=== PATIENT | female | born 1955 | race African-American/Black ===

== ENCOUNTER 2019-08-22 17:41 | Emergency (ER) | payer MEDICAID, OTHER ==
[~2019-08-22] VITALS: Ht 170.2 cm; Wt 104.3 kg
[2019-08-22] MEDS ORDERED: BACLOFEN 10 MG TAB PO ONE (22:45)
[2019-08-22] MEDS ORDERED: HYDROcodone-ACET 10/325MG TAB PO ONE (22:45)
[2019-08-22 23:20] VITALS: BP 134/86
== END 2019-08-22 23:23 | disposition home or self-care (01) ==
LOC: ER 17:52
DX: M62.830 Muscle spasm of back (principal); V89.2XXA Person injured in unspecified motor-vehicle accident, traffic, initial encounter; Y93.89 Activity, other specified; Y92.410 Unspecified street and highway as the place of occurrence of the external cause; Y99.8 Other external cause status
CPT/HCPCS: 72040; 72100

== ENCOUNTER 2021-06-28 22:40 | Emergency (ER) | payer MEDICAID ==
[~2021-06-28] VITALS: Ht 170.2 cm; Wt 108.9 kg
[2021-06-28] MEDS ORDERED: SODIUM CHLORIDE 0.9% 500 ML IV ONE (23:30)
[2021-06-28 23:56] LABS: Basophils # (auto) 0.2 10 ^3/uL (0-0.2); Basophils % (auto) 1.1 % (0.0-2.0); Eosinophils # (auto) 0.1 10 ^3/uL (0-0.8); Eosinophils % (auto) 0.9 % (0.0-7.0); Hemoglobin 14.6 g/dL (12.2-16.2); Lymphocytes # (auto) 2.6 10 ^3/uL (0.4-5.4); Lymphocytes % (auto) 17.3 % (10.0-50.0); Mean Corpuscular Hemoglobin 27.3 pg (28.0-32.0); Mean Corpuscular Hgb Conc. 33.1 g/dL (32.0-36.0); Mean Corpuscular Volume 82.7 fL (80.0-100.0); Monocytes # (auto) 0.9 10 ^3/uL (0-1.3); Monocytes % (auto) 5.9 % (0.0-12.0); Neutrophils % (auto) 74.8 % (37.0-80.0); Nucleated Red Blood Cells % 0.1 %; Red Blood Cells 5.33 10^6/uL (4.0-5.20); Red Cell Distribution Width 14.7 % (11.8-14.3); White Blood Cell 14.8 10^3/uL (4.4-10.8)
[2021-06-29 00:07] LABS: Urine Bacteria FEW /hpf (None Seen); Urine Blood Negative /uL (Negative); Urine Hyaline Cast FEW /lpf (0 - 2); Urine Mucus FEW (None Seen); Urine Specific Gravity 1.028 (1.001-1.035); Urine WBC 3 /hpf (0 - 5)
[2021-06-29 00:14] LABS: Albumin 3.7 g/dL (3.4-5.0); BUN/Creatinine Ratio 19.4; Calcium 10.4 mg/dL (8.5-10.1); Potassium 3.8 mmol/L (3.5-5.1)
[2021-06-29 00:17] LABS: Bilirubin, Total 0.7 mg/dL (0.2-1.0); Total Protein 7.9 g/dL (6.4-8.2)
[2021-06-29] MEDS ORDERED: IOHEXOL 300 MG/ML 100ML BOTTLE IJ ONE (02:34)
[2021-06-29 03:00] VITALS: BP 147/93
[2021-06-29] MEDS ORDERED: ONDANSETRON HCL 4 MG/2 ML VIAL IV ONE (04:00)
== END 2021-06-29 04:22 | disposition home or self-care (01) ==
LOC: EDBD 22:40 → ER 22:40
DX: R10.84 Generalized abdominal pain (principal); M54.5 Low back pain; E11.9 Type 2 diabetes mellitus without complications; Z79.4 Long term (current) use of insulin
CPT/HCPCS: 36415; 74177; 80053; 81001; 82962; 83605; 85025; 96361; 96374; 99285; J2405; J7040; Q9967

== ENCOUNTER 2022-07-13 13:48 | Emergency (ER) | payer MEDICAID ==
[~2022-07-13] VITALS: Ht 170.2 cm; Wt 104.5 kg
[2022-07-13 14:40] LABS: Eosinophils # (auto) 0.2 10 ^3/uL (0-0.8); Eosinophils % (auto) 1.4 % (0.0-7.0); Lymphocytes # (auto) 2.9 10 ^3/uL (0.4-5.4); Mean Corpuscular Hgb Conc. 31.3 g/dL (32.0-36.0)
[2022-07-13 14:42] LABS: Basophils # (auto) 0.3 10 ^3/uL (0-0.2); Basophils % (auto) 2.6 % (0.0-2.0); Hematocrit 44.6 % (36.0-46.0); Lymphocytes % (auto) 24.1 % (10.0-50.0); Mean Corpuscular Hemoglobin 25.1 pg (28.0-32.0); Monocytes # (auto) 0.7 10 ^3/uL (0-1.3); Monocytes % (auto) 6.2 % (0.0-12.0); Neutrophils # (auto) 7.9 10 ^3/uL (1.6-8.6); Neutrophils % (auto) 65.7 % (37.0-80.0); Nucleated Red Blood Cells % 0.2 %; Red Blood Cells 5.57 10^6/uL (4.0-5.20); Red Cell Distribution Width 15.4 % (11.8-14.3); White Blood Cell 12.1 10^3/uL (4.4-10.8)
[2022-07-13 14:54] LABS: Albumin 3.8 g/dL (3.4-5.0); Calcium 9.9 mg/dL (8.5-10.1)
[2022-07-13 14:57] LABS: BUN/Creatinine Ratio 21.1; Bilirubin, Total 0.7 mg/dL (0.2-1.0); Total Protein 7.5 g/dL (6.4-8.2)
[2022-07-13 17:57] LABS: Urine Bacteria NONE SEEN /hpf (None Seen); Urine Blood 1+ /uL (Negative); Urine Mucus FEW (None Seen); Urine Specific Gravity 1.029 (1.001-1.035); Urine WBC 6 /hpf (0 - 5)
[2022-07-13] MEDS ORDERED: IOHEXOL 350 MG/ML 100ML IJ ONE (18:51)
[2022-07-13] MEDS ORDERED: FAMO-12 PO (21:09)
[2022-07-13] MEDS ORDERED: ALUM & MAG HYDROX-SIMETH LIQ(MAALOX) 30 ML PO ONE (21:15)
[2022-07-13] MEDS ORDERED: DONNATAL 5ml ORAL Elix (BELLADONNA ALK-PHENOBARB) PO ONE (21:15)
[2022-07-13] MEDS ORDERED: BACL5TAB2 PO (21:34)
[2022-07-13] MEDS ORDERED: HYDROcodone-ACET 5/325MG TAB PO ONE (21:45)
[2022-07-13] MEDS ORDERED: BACLOFEN 10 MG TAB PO ONE (21:45)
[2022-07-13 22:08] VITALS: BP 157/67
== END 2022-07-13 22:14 | disposition home or self-care (01) ==
LOC: ER 13:48
DX: R10.84 Generalized abdominal pain (principal); E11.9 Type 2 diabetes mellitus without complications
CPT/HCPCS: 36415; 71260; 74177; 80053; 81001; 83605; 83690; 84484; 85025; 93005; 99285; Q9967

== ENCOUNTER 2023-08-11 11:28 | Inpatient (IN) | payer OTHER, MEDICAID ==
[~2023-08-11] VITALS: Ht 170.2 cm; Wt 101.4 kg
[~2023-08-11 11:28] MED LIST: BACL5TAB2 PO; FAMO-12 PO
[2023-08-11 13:05] LABS: Eosinophils # (auto) 0.1 10 ^3/uL (0-0.8); Lymphocytes # (auto) 1.4 10 ^3/uL (0.4-5.4); Monocytes # (auto) 1.3 10 ^3/uL (0-1.3); Neutrophils # (auto) 6.9 10 ^3/uL (1.6-8.6); Nucleated Red Blood Cells % 0.2 %
[2023-08-11 13:07] LABS: Basophils # (auto) 0.1 10 ^3/uL (0-0.2); Basophils % (auto) 0.7 % (0.0-2.0); Eosinophils % (auto) 0.8 % (0.0-7.0); Hematocrit 46.6 % (36.0-46.0); Hemoglobin 15.1 g/dL (12.2-16.2); Mean Corpuscular Hemoglobin 24.4 pg (28.0-32.0); Mean Corpuscular Hgb Conc. 32.4 g/dL (32.0-36.0); Mean Corpuscular Volume 75.2 fL (80.0-100.0); Monocytes % (auto) 13.4 % (0.0-12.0); Neutrophils % (auto) 71.1 % (37.0-80.0); Red Cell Distribution Width 16.7 % (11.8-14.3); White Blood Cell 9.8 10^3/uL (4.4-10.8)
[2023-08-11 13:39] LABS: Hypochromia Slight; Platelet Estimate Adequate
[2023-08-11 13:40] LABS: Giant Platelets Few
[2023-08-11 14:04] LABS: Alanine Aminotransferase 38 U/L (7-40); Albumin 4.8 g/dL (3.2-4.8); Alkaline Phosphatase 119 U/L (46-116); Anion Gap 8 (5-15); Aspartate Aminotransferase 23 U/L (13-40); BUN/Creatinine Ratio 13.3 (10.0-20.0); Blood Urea Nitrogen 18 mg/dL (9-23); Calcium 10.7 mg/dL (8.7-10.4); Carbon Dioxide 25 mmol/L (20-30); Chloride 106 mmol/L (98-107); Glucose 140 mg/dL (74-106); Lipase 68 U/L (12-53); Sodium 139 mmol/L (136-145)
[2023-08-11 14:05] LABS: Bilirubin, Total 0.7 mg/dL (0.2-1.0); Total Protein 7.9 g/dL (5.7-8.2)
[2023-08-11] MEDS ORDERED: SODIUM CHLORIDE 0.9% 1,000 ML IV ONE (14:30)
[2023-08-11] MEDS ORDERED: PIPERACILLIN-TAZOB 3.375GM 100 ML IV ONE (14:30)
[2023-08-11 16:15] VITALS: PULSE 65; RESP 23; O2SAT 93
[2023-08-11 18:34] LABS: Urine Bacteria FEW /hpf (None Seen); Urine Blood Negative /uL (Negative); Urine Clarity HAZY (Clear); Urine Color Yellow (Yellow); Urine Hyaline Cast MANY /lpf (0 - 2); Urine Mucus FEW (None Seen); Urine Protein, UAD 2+ (Negative); Urine Specific Gravity 1.025 (1.001-1.035); Urine Urobilinogen Normal (Negative); Urine WBC 4 /hpf (0 - 5); Urine pH 5.5 (5.0-8.0)
[2023-08-11] MEDS ORDERED: MORPHINE SULFATE INJ 2 MG/ml SYRG IV PRN (19:00)
[2023-08-11] MEDS ORDERED: ONDANSETRON HCL 4 MG/2 ML VIAL IV PRN (19:00)
[2023-08-11] MEDS ORDERED: DOCUSATE SOD 100 MG CAP PO PRN (19:00)
[2023-08-11 19:45] VITALS: PULSE 67; RESP 12; O2SAT 95
[2023-08-11] MEDS: SODIUM CHLORIDE 0.9% 1,000 ML IV SCH (22:39)
[2023-08-11] MEDS: VANCOMYCIN HCL 125MG/5ML ORAL SOL PO SCH (22:39)
[2023-08-11 23:16] LABS: Creatinine, Urine 151.86 mg/dL (30.0-125.0)
[2023-08-12] VITALS (8 sets, daily range): BP systolic 94–114; BP diastolic 43–58; PULSE 59–83; RESP 16–22; TEMP 98–98.2; O2SAT 94–100
[2023-08-12] MEDS: SODIUM CHLORIDE 0.9% 1,000 ML IV SCH ×3 (03:35→20:00)
[2023-08-12 06:15] LABS: Basophils # (auto) 0.1 10 ^3/uL (0-0.2); Hemoglobin 12.6 g/dL (12.2-16.2); Lymphocytes # (auto) 1.8 10 ^3/uL (0.4-5.4); Mean Corpuscular Volume 75.2 fL (80.0-100.0)
[2023-08-12 06:19] LABS: Basophils % (auto) 0.7 % (0.0-2.0); Eosinophils # (auto) 0.1 10 ^3/uL (0-0.8); Eosinophils % (auto) 1.5 % (0.0-7.0); Hematocrit 39.3 % (36.0-46.0); Lymphocytes % (auto) 24.1 % (10.0-50.0); Mean Corpuscular Hemoglobin 24.1 pg (28.0-32.0); Mean Corpuscular Hgb Conc. 32.1 g/dL (32.0-36.0); Monocytes # (auto) 1.4 10 ^3/uL (0-1.3); Monocytes % (auto) 17.8 % (0.0-12.0); Neutrophils # (auto) 4.3 10 ^3/uL (1.6-8.6); Neutrophils % (auto) 55.9 % (37.0-80.0); Nucleated Red Blood Cells % 0.1 %; Red Blood Cells 5.22 10^6/uL (4.0-5.20); Red Cell Distribution Width 16.8 % (11.8-14.3); White Blood Cell 7.6 10^3/uL (4.4-10.8)
[2023-08-12 06:25] LABS: Alanine Aminotransferase 30 U/L (7-40); Albumin 3.7 g/dL (3.2-4.8); Alkaline Phosphatase 91 U/L (46-116); Anion Gap 7 (5-15); Aspartate Aminotransferase 19 U/L (13-40); BUN/Creatinine Ratio 18.4 (10.0-20.0); Blood Urea Nitrogen 16 mg/dL (9-23); Calcium 9.3 mg/dL (8.7-10.4); Carbon Dioxide 23 mmol/L (20-30); Chloride 110 mmol/L (98-107); Glucose 114 mg/dL (74-106); Lipase 61 U/L (12-53); Potassium 3.6 mmol/L (3.5-5.1); Sodium 140 mmol/L (136-145)
[2023-08-12 06:26] LABS: Bilirubin, Total 0.6 mg/dL (0.2-1.0); Total Protein 6.2 g/dL (5.7-8.2)
[2023-08-12] MEDS: VANCOMYCIN HCL 125MG/5ML ORAL SOL PO SCH ×4 (07:44→22:00)
[2023-08-12] MEDS: PANTOPRAZOLE 40 MG/10 ML VIAL INJ IV SCH (10:40)
[2023-08-12] MEDS: NICOTINE 21MG/24 HR TOPICAL PATCH TD SCH (10:40)
[2023-08-12] MEDS ORDERED: cefTRIAXone 1GM/50ML D5W 50 ML IV ONE (13:15)
[2023-08-12] MEDS ORDERED: DEXTROSE (50%) 50ML SYRG IV PRN (13:45)
[2023-08-12] MEDS: InsuLIN REG 1unit/0.01ml Soln (100units/ml) SC SCH ×2 (17:00→20:00)
[2023-08-12] MEDS: ACCU-CHEK COMFORT CURVE STRIP VI SCH ×2 (17:27→22:32)
[2023-08-13] MEDS: SODIUM CHLORIDE 0.9% 1,000 ML IV SCH ×3 (04:20→20:41)
[2023-08-13] MEDS: ACCU-CHEK COMFORT CURVE STRIP VI SCH ×6 (04:26→20:36)
[2023-08-13] MEDS: InsuLIN REG 1unit/0.01ml Soln (100units/ml) SC SCH ×6 (04:32→20:00)
[2023-08-13 05:00] VITALS: BP 109/49; PULSE 75; RESP 17; TEMP 98.2; O2SAT 96
[2023-08-13] MEDS: VANCOMYCIN HCL 125MG/5ML ORAL SOL PO SCH ×4 (06:24→21:30)
[2023-08-13 08:00] VITALS: PULSE 64; RESP 20; O2SAT 98
[2023-08-13] MEDS: NICOTINE 21MG/24 HR TOPICAL PATCH TD SCH (08:11)
[2023-08-13] MEDS: PANTOPRAZOLE 40 MG/10 ML VIAL INJ IV SCH (08:11)
[2023-08-13] MEDS: cefTRIAXone 1GM/50ML D5W 50 ML IV SCH (08:11)
[2023-08-13 08:30] VITALS: BP 116/65; PULSE 64; RESP 20; TEMP 97.8; O2SAT 98
[2023-08-13] MEDS: metroNIDAZOLE 500MG/100ML 100 ML IV SCH ×2 (14:03→21:29)
[2023-08-13 17:17] VITALS: BP 134/68; PULSE 75; RESP 20; TEMP 98.4; O2SAT 97
[2023-08-13 21:54] VITALS: BP 146/67; PULSE 83; RESP 17; TEMP 99; O2SAT 99
[2023-08-14] MEDS: ACCU-CHEK COMFORT CURVE STRIP VI SCH ×4 (03:08→11:48)
[2023-08-14] MEDS: InsuLIN REG 1unit/0.01ml Soln (100units/ml) SC SCH ×4 (03:09→11:51)
[2023-08-14 05:00] VITALS: BP 124/64; PULSE 67; RESP 18; TEMP 98.9; O2SAT 97
[2023-08-14] MEDS: SODIUM CHLORIDE 0.9% 1,000 ML IV SCH ×2 (05:20→08:32)
[2023-08-14] MEDS: metroNIDAZOLE 500MG/100ML 100 ML IV SCH ×2 (05:37→14:58)
[2023-08-14] MEDS: VANCOMYCIN HCL 125MG/5ML ORAL SOL PO SCH ×2 (05:39→11:44)
[2023-08-14] MEDS ORDERED: ATEN25TA PO (05:52)
[2023-08-14] MEDS ORDERED: CHOL20003 PO (05:52)
[2023-08-14] MEDS ORDERED: ALEN70TA74 PO (05:52)
[2023-08-14] MEDS ORDERED: ASPI-325 PO (05:52)
[2023-08-14] MEDS ORDERED: PANT40T PO (05:52)
[2023-08-14] MEDS ORDERED: INS7030I SC (05:52)
[2023-08-14] MEDS ORDERED: GLIP10TA21 PO (05:52)
[2023-08-14] MEDS ORDERED: GAB100C PO (05:52)
[2023-08-14] MEDS ORDERED: CYAN100042 PO (05:52)
[2023-08-14] MEDS ORDERED: ATOR40TA52 PO (05:52)
[2023-08-14 08:00] VITALS: RESP 16; O2SAT 95
[2023-08-14] MEDS: PANTOPRAZOLE 40 MG/10 ML VIAL INJ IV SCH (08:21)
[2023-08-14] MEDS: NICOTINE 21MG/24 HR TOPICAL PATCH TD SCH (08:21)
[2023-08-14] MEDS: cefTRIAXone 1GM/50ML D5W 50 ML IV SCH (08:22)
[2023-08-14 08:30] VITALS: BP 132/69; PULSE 54; RESP 16; TEMP 98; O2SAT 95
[2023-08-14] MEDS ORDERED: LEVO500T91 PO (11:07)
[2023-08-14] MEDS ORDERED: MET500T PO (11:07)
[2023-08-14] MEDS ORDERED: NIC21P TOP (11:24)
[2023-08-14 12:30] VITALS: BP 128/81; PULSE 71; RESP 20; TEMP 97.2; O2SAT 95
[2023-08-14 14:28] VITALS: BP 128/81; PULSE 71; RESP 20; TEMP 97.7; O2SAT 95
== END 2023-08-14 14:57 | disposition home or self-care (01) | DRG 391 ==
LOC: ER 11:28 → TELE 19:02 → EAST 08-12 01:55
PROVIDERS: ADMIT Nurse Practitioner Family; ATTEND Family Medicine
DX: K57.30 Diverticulosis of large intestine without perforation or abscess without bleeding (principal); K85.90 Acute pancreatitis without necrosis or infection, unspecified; N39.0 Urinary tract infection, site not specified; N17.9 Acute kidney failure, unspecified; E86.0 Dehydration; I10 Essential (primary) hypertension; K43.9 Ventral hernia without obstruction or gangrene; E78.5 Hyperlipidemia, unspecified; Z82.0 Family history of epilepsy and other diseases of the nervous system; Z87.891 Personal history of nicotine dependence; Z90.711 Acquired absence of uterus with remaining cervical stump; E11.65 Type 2 diabetes mellitus with hyperglycemia
CPT/HCPCS: 36415; 74176; 80053; 81001; 82570; 82962; 83605; 83690; 84300; 85025; 85048; 87040; 87045; 87077; 87086; 87186; 87427; 87493; 93005; 96365; 96367; C9113; G0378; J0696; J1815; J2543; J3490

== ENCOUNTER 2025-02-25 04:46 | Emergency (ER) | payer OTHER, MEDICAID ==
[~2025-02-25] VITALS: Ht 170.2 cm; Wt 103.2 kg
[~2025-02-25 04:46] MED LIST changes: +ALEN70TA74 PO; +ASPI-325 PO; +ATEN25TA PO; +ATOR40TA52 PO; +CHOL20003 PO; +CYAN100042 PO; +GAB100C PO; +GLIP10TA21 PO; +INS7030I SC; +LEVO500T91 PO; +MET500T PO; +NIC21P TOP; +PANT40T PO
--- NOTE | 2025-02-25 05:26 | ED.PDOC ---
Back pain HPI HPI Comments C/C: MID TO LOWER LEFT SIDE BACK PAIN FOR THE PAST 3 DAYS. STATES THAT 3 DAYS AGO SHE WAS PUSHING A HEAVY FREEZER. ALL VSS. PATIENT DENIES NUMBNESS, WEAKNESS, LOSS OF BOWEL OR BLADDER CONTROL, OR SADDLE ANESTHESIA. Chief Complaint: Back Pain Time Seen by MD: 05:00 Primary Care Provider: JOSE Reviewed Notes: Nurses Notes, Medications, Allergies Allergies: Coded Allergies: NO KNOWN ALLERGIES (Unverified , 08/22/19) Home Meds Active Scripts Nicotine (Nicoderm 21MG/24HR) 1 Patch Ph, 1 PATCH TOP DAILY, #28 PATCH 1 Refill Prov:JENNIE LLANOS MD 08/14/23 Metronidazole (Metronidazole) 500 Mg Tab, 500 MG PO TID, #21 TAB Prov:JENNIE LLANOS MD 08/14/23 Levofloxacin Hemihydrate (LEVAQUIN 500 MG) 500 Mg Tab, 1 TAB PO DAILY, #7 TAB Prov:JENNIE LLANOS MD 08/14/23 Baclofen (Baclofen) 5 Mg Tab, 5 MG PO QHSP PRN for 15 Days, #15 TAB Prov:LATASHA FISCHER MD 07/13/22 Famotidine (Famotidine) 20 Mg Tab, 20 MG PO BID for 30 Days, #30 TAB Prov:LATASHA FISCHER MD 07/13/22 Reported Medications Insulin Isophane & Reg (Human) (Humulin 70/30 (70-30) 100 Unit/ml) 1 Units/0.01 Ml Inj, 26 UNITS SC BID 08/14/23 Alendronate Sodium (Alendronate Sodium) 70 Mg Tab, 1 TAB PO QWEEKLY 08/14/23 Cyanocobalamin (Vitamin B-12) Unknown Strength Tab, PO DAILY 08/14/23 Atenolol (Atenolol) 25 Mg Tab, 1 TAB PO DAILY 08/14/23 Aspirin (Aspirin Low Dose) 81 Mg Tab, 1 TAB PO DAILY 08/14/23 Pantoprazole Sodium Sesquihydr (Pantoprazole Sodium) 40 Mg Tab, 1 TAB PO DAILY 08/14/23 Gabapentin (Gabapentin) 100 Mg Cap, 1 CAP PO DAILY 08/14/23 Glipizide (Glipizide Er) 10 Mg Tab, 1 TAB PO DAILY 08/14/23 Cholecalciferol (Vitamin D-3 Super Strengt) Unknown Strength Tab, PO DAILY 08/14/23 Atorvastatin Calcium (ATORVASTATIN CALCIUM) 40 Mg Tab, 1 TAB PO DAILY 08/14/23 Information Source: Patient, Relative (Child) Mode of Arrival: Wheelchair Past Medical History PAST MEDICAL HISTORY: DM Surgical History: Denies all surgeries 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 History Family History Family History: Reviewed,noncontributory to illness, No family hx of Cancer, No family hx of DM, No family hx of Heart anish, No family hx of HTN, No family hx ofKidney anish, No family hx of Liver anish, No family hx of Lung anish, No family hx of Stroke Social History Smoker: Non-Smoker Alcohol: Denies ETOH Use Drugs: Denies Drug Use Lives In: Home Constitutional: denies: chills, diaphoresis, fatigue, fever, malaise, sweats, weakness, others EENTM: denies: blurred vision, double vision, ear bleeding, ear discharge, ear drainage, ear pain, ear ringing, eye pain, eye redness, hearing loss, mouth pain, mouth swelling, nasal discharge, nose bleeding, nose congestion, nose pain, photophobia, tearing, throat pain, throat swelling, voice changes, others Respiratory: denies: cough, hemoptysis, orthopnea, SOB at rest, shortness of breath, SOB with excertion, stridor, wheezing, others Cardiovascular: denies: chest pain, dizzy spells, diaphoresis, Dyspnea on exertion, edema, irregular heart beat, left arm pain, lightheadedness, palpitations, PND, syncope, others Gastrointestinal: denies: abdomen distended, abdominal pain, blood streaked bowels, constipated, diarrhea, dysphagia, difficulty swallowing, hematemesis, melena, nausea, poor appetite, poor fluid intake, rectal bleeding, rectal pain, vomiting, others Genitourinary: denies: abnormal vagina bleeding, burning, dyspareunia, dysuria, flank pain, frequency, hematuria, incontinence, pain, , vagina discharge, urgency, others Neurological: denies: dizziness, fainting, headache, left sided numbness, left sided weakness, numbness, paresthesia, pre-existing deficit, right sided numbness, right sided weakness, seizure, speech problems, tingling, tremors, weakness, others Musculoskeletal: reports: back pain; denies: gout, joint pain, joint swelling, muscle pain, muscle stiffness, neck pain, others Integumetry: denies: bruises, change in color, change in hair/nails, dryness, laceration, lesions, lumps, rash, wounds, others Allergic/Immunocompromised: denies: Difficulty Healing, Frequent Infections, Hives, Itching, others Hematologic/Lymphatic: denies: anemia, blood clots, easy bleeding, easy bruising, swollen glands, others Endocrine: denies: excessive hunger, excessive sweating, excessive thirst, excessive urination, flushing, intolerance to cold, intolerance to heat, unexplained weight gain, unexplained weight loss, others Psychiatric: denies: anxiety, bipolar disorder, depression, hopeless, panic disorder, schizophrenia, sleepless, suicidal, others Physical Exam General Appearance: No Apparent Distress, Normal HEENT: Pharynx Normal Neck: Full Range of Motion, Non-Tender Respiratory: Lungs Clear, No Respiratory Distress, Normal Breath Sounds Cardiovascular: No Edema, No JVD, No Murmur, No Gallop, Normal Peripheral Pulses, Regular Rate/Rhythm Breast Exam: Deferred Gastrointestinal: No Organomegaly, Non Tender, No Pulsatile Mass, Normal Bowel Sounds, Soft Genitalia: Deferred Pelvic: Deferred Rectal: Deferred Extremities: Normal capillary refill, Normal inspection, Normal range of motion, Non-tender, No pedal edema Musculoskeletal : Location: Left Extremity Location: Back (MODERATE TENDERNESS ON PALPATION OVER T 8 THROUGH L 3 PARASPINAL MUSCLES LEFT SIDE GREATER THAN RIGHT NO NOTED CREPITUS OR STEP- OFFS ALONG THORACIC AND LUMBAR SPINE STRENGTH SENSORY AND MOTION INTACT NEGATIVE STRAIGHT LEG RAISE BILATERAL POSITIVE PEDAL PULSES) Apperance: Normal Neurologic: Alert, 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 Was a procedure done?: No Back Pain Differential Dx Differential Diagnosis: Fracture, Musculoskeletal Pain, Strain X-Ray, Labs, Meds, VS Vital Signs Date Time Temp Pulse Resp B/P (MAP) Pulse Ox O2 Delivery O2 Flow Rate FiO2 02/25/25 05:11 98.4 68 20 151/78 (102) 96 98.4 X-Ray, Labs, Meds, VS Comment Imaging: Thoracic and lumbar spine CT showed no acute osseous lesions, fractures, subluxations does show spondylo lordosis chronic in nature. Medications: Decadron 10 mg IM [place] 5 mg p.o. Patient reports improvement in pain requesting discharge at this time with her daughter. Script muscle relaxer for HS. Take medications as prescribed side effects discussed. Advised to follow up with her PCP in 1-2 days as necessary consider further imaging such as MRI if symptoms persist. ER return precautions given patient indicates understanding agrees with discharge plan of care Time of 1ST Reevaluation: 05:25 Reevaluation 1ST: Unchanged Patient Education/Counseling: Diagnosis, Treatment, Prognosis, Need For Follow Up Family Education/Counseling: Diagnosis, Treatment, Prognosis, Need For Follow Up Departure 1 Departure Time of Disposition: 06:13 Impression: Primary Impression: Musculoskeletal pain Additional Impressions: Lumbar sprain Qualified Codes: S33.5XXA - Sprain of ligaments of lumbar spine, initial encounter Strain of muscle and tendon of back wall of thorax, initial encounter Disposition: HOME / SELF CARE / HOMELESS Condition: Stable e-Prescriptions Methocarbamol (Methocarbamol) 500 Mg Tab 500 MG PO HS PRN for 5 Days, #5 TAB Prov: RODY LEE 02/25/25 Discharged With: Relative Critical Care Note Critical Care Time?: No Stability Stability form required: RODY Gaona Feb 25, 2025 05:26
--- NOTE | 2025-02-25 05:58 | DVH ---
CLINICAL INDICATION: 69 years old, Female; pain. TECHNIQUE: CT of the thoracic spine was performed without intravenous contrast. Sagittal and coronal reformatted images are provided. All CT scans at this medical facility are performed using dose modu lation techniques as appropriate to a performed exam including the following: Automated exposure cont rol was utilized; adjustment of the MA and/or KV according to patient size; and use of iterative saleem nstruction technique. COMPARISON: None CT Dose: CTDI volume is 38.2 mGy. Dose-length product is 1432.8 mGy*cm FINDINGS: The alignment and curvature of the thoracic spine are preserved. The vertebral bodies are normal in h eight. Multilevel intervertebral disc space narrowing in the midthoracic spine. There is no evidence of spinal canal or neural foraminal stenosis. The prevertebral soft tissues are unremarkable. Paraspinal muscles are also within normal limits. Large hiatal hernia. Emphysema in the lungs. Left lower lobe atelectasis. IMPRESSION: 1. No acute fracture or malalignment in the thoracic spine. 2. Multilevel degenerative changes. 3. Hiatal hernia.
--- NOTE | 2025-02-25 06:04 | DVH ---
CLINICAL INDICATION: 69 years old, Female; radiculopathy LEFT side. TECHNIQUE: CT of the lumbar spine was performed without intravenous contrast. Sagittal and coronal re formatted images are provided. All CT scans at this medical facility are performed using dose modula tion techniques as appropriate to a performed exam including the following: Automated exposure contro l was utilized; adjustment of the MA and/or KV according to patient size; and use of iterative recons truction technique. COMPARISON: None CT Dose: CTDI volume is 38.2 mGy. Dose-length product is 1432.8 mGy*cm FINDINGS: The alignment and curvature of the lumbar spine are preserved. The vertebral bodies are normal in hei ght. The intervertebral disc spaces are maintained. There is no evidence of spinal canal stenosis. B ilateral neural foramina stenosis at L4-L5 and L5-S1. The prevertebral soft tissues are unremarkable. Paraspinal muscles are also within normal limits. IMPRESSION: 1. No acute fracture or malalignment in the lumbar spine. 2. Multilevel lumbar spondylosis.
[2025-02-25] MEDS ORDERED: METH-1181 PO (06:13)
[2025-02-25] MEDS: DexAMETHasone SOD PHOS 10MG/1ML VIAL INJ IM ONE (06:17)
[2025-02-25] MEDS: HYDROcodone-ACET 5/325MG TAB PO ONE (06:17)
[2025-02-25 06:35] VITALS: BP 154/88; PULSE 66; RESP 12; TEMP 98; O2SAT 96
== END 2025-02-25 06:40 | disposition home or self-care (01) ==
LOC: ER 04:46
DX: S33.5XXA Sprain of ligaments of lumbar spine, initial encounter (principal); S29.012A Strain of muscle and tendon of back wall of thorax, initial encounter; M79.18 Myalgia, other site; E11.9 Type 2 diabetes mellitus without complications; Z79.4 Long term (current) use of insulin; Z79.82 Long term (current) use of aspirin; Z79.84 Long term (current) use of oral hypoglycemic drugs; Z79.899 Other long term (current) drug therapy; X58.XXXA Exposure to other specified factors, initial encounter; Y93.89 Activity, other specified; Y92.89 Other specified places as the place of occurrence of the external cause; Y99.8 Other external cause status
CPT/HCPCS: 72128; 72131; 96372; 99285; J1100